=== PATIENT | male | born 1955 | race Caucasian/White ===

== ENCOUNTER 2021-02-20 20:49 | Emergency (ER) | payer MEDICARE, MEDICAID ==
[~2021-02-20] VITALS: Ht 180.3 cm; Wt 93.4 kg
[~2021-02-20 20:49] MED LIST: FLAGYL500 MG PO; TRAMADOL HCL50 MG PO; ZANTAC150 MG PO
[2021-02-20 21:25] LABS: HEMATOCRIT 45.2 % (42.0-52.0); MEAN CORPUSCULAR HGB 33.8 pg (27.0-31.0); MEAN CORPUSCULAR HGB CONC 33.8 g/dl (33.0-37.0); MEAN PLATELET VOLUME 9.9 fl (9.6-12.3); PLATELET COUNT AUTOMATED 44 10*3/uL (130-400); RED BLOOD COUNT 4.52 10*6/uL (4.50-5.90); RED CELL DISTRI WIDTH 13.2 % (0-14.5); WHITE BLOOD COUNT 5.4 10*3/uL (4.8-10.8)
[2021-02-20 21:34] LABS: INTERNATIONAL NORM RATIO 1.2 (2.0-3.5)
[2021-02-20 21:49] LABS: ALBUMIN 2.7 gm/dl (3.1-4.5); ALKALINE PHOSPHATASE 122 U/L (45-117); BUN 13 mg/dl (7-24); CHLORIDE 103 mmol/L (98-107); CKMB 1.6 ng/ml (0.5-3.6); CPK 82 U/L (39-308); CREATININE 1.11 mg/dL (0.70-1.30); LIPASE 218 U/L (73-393); POTASSIUM 3.8 mmol/L (3.5-5.1); SGOT/AST 109 IU/L (3-35); SGPT/ALT 101 U/L (12-78); SODIUM 134 mmol/L (136-145)
[2021-02-20 21:52] LABS: ATYPICAL LYMPHS 1 % (0-0); BASOPHILS 2 % (0-1); BURR CELLS FEW; PLATELET SUFFICIENCY LOW (NORMAL); TOTAL CELLS COUNTED 100 #CELLS
[2021-02-20 21:54] LABS: THYROXINE (T4) TOTAL 11.3 ug/dl (4.5-12.1)
[2021-02-20 21:55] LABS: ACETAMINOPHEN (TYLENOL) < 5.0 ug/ml (10-30)
[2021-02-21 03:00] LABS: BILIRUBIN Negative (Negative); BLOOD Negative (Negative); CLARITY Clear (Clear); COLOR Yellow (Yellow); GLUCOSE 3+ (Negative); KETONE Negative (Negative); LEUKO ESTERASE Negative (Negative); NITRITE Negative (Negative); PH 5.5 (4.5-8.0); UROBILINOGEN 0.2 E.U./dl (0.0-1.0)
[2021-02-21 03:07] LABS: URINE AMPHETAMINES < 1000 (1000ng/ml); URINE BARBITURATES < 200 (200ng/ml); URINE BENZODIAZEPINES < 200 (200ng/ml); URINE CANNABINOIDS (THC) < 50 (50ng/ml); URINE COCAINE < 300 (300ng/ml); URINE METHADONE < 300 (300ng/ml); URINE OPIATES < 300 (300ng/ml)
[2021-02-21 03:11] LABS: URINE PHENCYCLIDINE < 25 (25ng/ml)
[2021-02-21 03:14] LABS: RBC 0-2 rbc/hpf (0-2); WBC 0-2 wbc/hpf (0-5)
== END 2021-02-21 10:55 | disposition home or self-care (01) ==
LOC: ED 20:49
PROVIDERS: Emergency Medicine
DX: F43.21 Adjustment disorder with depressed mood (principal); Z20.822 Contact with and (suspected) exposure to COVID-19; F10.920 Alcohol use, unspecified with intoxication, uncomplicated; R45.851 Suicidal ideations; Z88.0 Allergy status to penicillin; Y90.6 Blood alcohol level of 120-199 mg/100 ml